=== PATIENT | female | born 1985 | race African-American/Black ===

== ENCOUNTER 2016-10-04 23:43 | Emergency (ER) | payer OTHER ==
[~2016-10-04] VITALS: Ht 160 cm; Wt 57.6 kg
[2016-10-04 23:43] VITALS: BP 109/67
[2016-10-05] MEDS ORDERED: PREN1TAB81 PO (00:02)
[2016-10-05] MEDS ORDERED: IBUP-51 PO (00:02)
== END 2016-10-05 01:02 ==
LOC: ER 23:48
DX: O20.8 Other hemorrhage in early pregnancy (principal); H11.32 Conjunctival hemorrhage, left eye; Z3A.01 Less than 8 weeks gestation of pregnancy
CPT/HCPCS: A4606; Z7610